=== PATIENT | female | born 1955 | race Caucasian/White ===

== ENCOUNTER → 2018-06-28 12:30 | Outpatient (CLI) | payer OTHER, SELFPAY ==
[2018-06-18 10:46] VITALS: BMI 37.8
--- NOTE | 2018-06-28 12:32 | STE_ITS ---
Reason For Study: CHEST PAIN Stress Results Protocol: Rommel Protocol Maximum Predicted HR: 159 bpm Target HR: 135 bpm % Maximum Predicted HR: 93 % DurationHeart Rate Stage (mm:ss) (bpm) BP Comment BASELINE 77 160/70 STAGE 1 3:00 125 182/82 STAGE 2 2:30 148 220/98INCREASED SOB RECOVERY 84 178/86 Stress Duration: 5:30 mm:ss Maximum Stress HR: 148 bpm Baseline Echocardiogram Findings The estimated ejection fraction is 65 %. Stress Echo Wall motion Data Resting WM Intermediate WM Stress WM Resting Wall Motion Wall Motion Stress No regional wall motion No regional wall motion abnormalities noted. abnormalities noted. EKG Data The baseline ECG displays normal sinus rhythm. The patient exercised according to the regular Rommel protocol for a total duration of 5:30. The maximum heart rate attained was 184 beats per minute. This was 115% of maximum predicted heart rate. The patient exercised into stage 2 of the Rommel protocol. The stress ECG displays diffuse abnormal ST segments. No clinical angina was noted. Interpretation Summary The estimated ejection fraction is 65 %. Normal, adequate, treadmill echocardiogram. Negative for ischemia by echocardiographic criteria. No anginal symptoms noted. Rare PVCs and ventricular cuplets noted. Hypertensive blood pressure response to exercise. Decreased exercise capacity for age. Final LVEF of 75%. No complications. Ordering Physician: J Carlos Barfield Referring Physician: J Carlos Barfield Performed By: Meeta Cook, RDLUPE, RVT
--- OUTSIDE RECORDS SUMMARY | 2018-09-30 02:53 | XMS RPT_ITS ---
:1955 Author Organization OHIP Support Name Relationship Address Phone UE Unavailable Unavailable Unavailable MAYNOR BEASLEY Unavailable [address] + [place] [address] UE Unavailable Unavailable Unavailable TAJ MAYNOR Unavailable [address] + [place] [address] UE Unavailable Unavailable Unavailable TAJ MAYNOR Unavailable [address] + [place] [address] MAYNOR BEASLEY Unavailable [phone] [place] [address] MAYNOR BEASLEY Unavailable [address] + [place] [address] UE Unavailable Unavailable Unavailable TAJ MAYNOR Unavailable [phone] [place] [address] TAJ MAYNOR Unavailable [address] + [place] [address] MAYNOR BEASLEY Unavailable [phone] [place] [address] UE Unavailable Unavailable Unavailable TAJ MAYNOR Unavailable [phone] [place] [address] UE Unavailable Unavailable Unavailable MAYNOR BEASLEY Unavailable [phone] [place] [address] UE Unavailable Unavailable Unavailable TAJ MAYNOR Unavailable [phone] [place] [address] TAJ MAYNOR Unavailable [address] + [place] [address] TAJ MAYNOR Unavailable [phone] [place] [address] Care Team Providers Name Role Phone MONIQUE WADSWORTH, AYAZ Humphrey JR. Attending Unavailable REBEKAH SHINE MD Primary Care Unavailable REBEKAH SHINE MD Attending Unavailable REBEKAH SHINE MD Primary Care Unavailable MANDIE CHAUDHRY, DR. LUIZ Smiley Attending Unavailable MANDIE CHAUDHRY, DR. LUIZ Smiley Primary Care Unavailable J Carlos Barfield Attending Unavailable Rebekah Shine Referring Unavailable J Carlos Barfield Attending Unavailable Fátima, Rebekah Referring Unavailable Fátima, Rebekah Primary Care Unavailable Meme Coker Attending Unavailable Denise Mattson Attending Unavailable J Carlos Barfield Attending Unavailable J Carlos Barfield Referring Unavailable Luiz Grider Primary Care Unavailable J Carlos Barfield Attending Unavailable J Carlos Barfield Referring Unavailable Annamaria Belcher Attending Unavailable Fátima, Rebekah Referring Unavailable PROBLEMS PROBLEMS DATE TYPE CONDITION / CODE ATTENDING STATUS SOURCE 07/21/2018 Unknown R07.9 - Chest pain, Lico J Carlos Active [facility] unspecified / [facility] R07.9(ICD-10) Hospital Repository 06/18/2018 Unknown R07.89 - Other chest Lico J Carlos Active [facility] pain / [facility] R07.89(ICD-10) Hospital Repository 06/18/2018 Unknown I10 - Essential J Carlos Barfield Active [facility] (primary) [facility] hypertension / Hospital I10(ICD-10) Repository 06/18/2018 Unknown E78.5 - J Carlos Barfield Active [place] Hyperlipidemia, [facility] unspecified / Hospital E78.5(ICD-10) Repository 12/21/2017 Admitting Type 2 diabetes FÁTIMA WADSWORTH, Active [facility] Diagnosis mellitus without REBEKAH H[facility] complications / Repository E11.9(ICD-10) 12/21/2017 Admitting Mixed hyperlipidemia FÁTIMA WADSWORTH Active [facility] Diagnosis / E78.2(ICD-10) [facility] H[facility] Repository 12/21/2017 Admitting Atrophy of thyroid FÁTIMA WADSWORTH, Active [facility] Diagnosis (acquired) / [facility]KAH H[facility] E03.4(ICD-10) Repository PROCEDURES PROCEDURES No Procedure Records FoundRESULTS RESULTS CARDIOLOGY VISIT Observed: 07/08/2018 Status: F Source: [facility] REPORT 5:51 PM [facility] HOSPITAL REPOSITORY [facility] [address] [place] [address]. [address] [place] [address] OFFICE VISIT Date of Service: 07/02/18 MR#: [id number] Acct: [id number] Name: MARIA INES BEASLEY Rep #: [id number] : 1955 Provider: Annamaria Belcher Age/Sex: 63/F Location: [facility] [place] Status: Signed [facility] Chief Complaint: Routine f/u Details: MARIA INES BEASLEY, is a 63 F who presents to the office today for for a blood pressure follow-up. Patient was in our office 2 weeks ago. Her blood pressure medications were adjusted. She does have a history of hypertension, hyperlipidemia and a strong family history of coronary artery disease. From a cardiac standpoint, patient is doing well. She does not have any chest discomfort/heaviness/tightness. Her exercise tolerance is stable for her age. She does not have any worsening symptoms of shortness of breath. She does not have any orthopnea. She denies PND. She does not have any symptoms of congestive heart failure. She does not have any palpitations that she is aware of. She does not have any lightheadedness or dizziness. She does not have any near-syncope or syncope. She does not have any lower extremity edema. She does not have any symptoms of claudication. 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 [Ecotrin] 81 mg PO DAILY@0800 04/18/14 [History Confirmed 07/02/18] Citalopram Hydrobromide [Celexa] 40 mg PO DAILY 04/18/14 [History Confirmed 07/02/18] Levothyroxine [Synthroid] 125 mcg PO DAILY 04/18/14 [History Confirmed 07/02/18] Venlafaxine XR [Effexor Xr] 37.5 mg PO DAILY 04/18/14 [History Confirmed 07/02/18] antiarthritic combination no.2 900 mg tablet mg PO .q day tab 11/16/17 [History Confirmed 07/02/18] valacyclovir 1 gram tablet 1,000 mg PO TID PRN 11/27/17 [History Confirmed 11/27/17] carvedilol 6.25 mg tablet 6.25 mg PO BID #180 tab 06/11/18 [Rx Confirmed 07/02/18] lisinopril 10 mg tablet 10 mg PO BID #60 tab 06/18/18 [Rx Confirmed 07/02/18] simvastatin 40 mg tablet 20 mg PO QPM tab 07/02/18 [History Confirmed 07/02/18] PFSH Medical History Pre-diabetes (Chronic) Hypothyroidism (Chronic) Hyperlipidemia (Chronic) Hypertension (Chronic) Obstructive sleep apnea (Chronic) Diabetes mellitus type II, controlled (Ruled-out) Surgical History History of appendectomy (Chronic) History of gynecologic surgery (Chronic) History of left heart catheterization (Chronic 04/19/14) Hx of cholecystectomy (Chronic) repair of anal fistula (Chronic) History of gynecologic surgery (Resolved) Family History Father , 70+ cancer in chest Myocardial infarction, Onset Age: 56 second AR age 73 CAD (coronary artery disease) Mother , Age 53, diabetes complications Diabetes Brother CAD (coronary artery disease) Myocardial infarction, Onset Age: 40 second AR age 50+ Social History Smoking Status: Never smoker ROS Const Const: Positive for other (Had heart fluttering when ran out of [email or web address]: back on it now.); negative for fatigue, weakness, body ache, fever(s), headache(s), chills, frequent falls, night sweats, daytime sleepiness, difficulty sleeping, excessive sweating, weight gain, weight loss, increased appetite, poor appetite or anorexia Eyes Eyes: Negative for blind spots, loss of peripheral vision, transient loss of vision, blurry vision, change in vision, double vision, floaters, tunnel vision or other ENT ENT: Negative for headache(s) or balance problems Cardio Chest Pain: Yes (Occasional pressure when walking dog, goes away. Cath 2013 normal) Frequency: more than once a day Character: tightness Onset: exercise Location: other (after exerting for a bit it does go away with continued activity) Duration: minutes (a few minutes) Exacerbation: exercise Relieving: other (continued activity) Palpitations: No (Not since going back on Coreg) Edema: None Muscle aches with walking: None Resp Respiratory: Negative for SOB with activity, SOB at rest, SOB orthopnea\SOB lying down, Cough, Coughing up blood/hemoptysis, chest congestion, pain on inspiration, snoring, stridor, wheezing, crackles, paroxysmal nocturnal dyspnea or other GI GI: Negative nausea, vomiting, heartburn, constipation, belching, bloating, cramping, vomiting blood/hematemesis, bright, red blood in stools, black,tarry stools, loose stools, Difficulty Swallowing or other : Negative for hematuria, frequent nighttime urination/ nocturia, erectile dysfunction or abnormal vaginal bleeding Musc Musc: Negative for balance problems, muscle aches/ myalgia, muscle weakness or joint pain Skin Skin: Negative redness, non-healing lesions, rash, unusual bruising, skin ulcer, wounds, jaundice or other Neuro Neuro: Negative for weakness, headache(s), frequent falls, blurry vision or double vision Harpreet Hematologic/Lymphatic: Negative for easy bleeding, easy bruising, enlarged lymph nodes or other Endo Endo: Negative for fatigue or excessive sweating Psych Psych: Negative for anxiety, depression, thoughts of harming anyone, thoughts of harming yourself, visual hallucinations, panic attacks or audible hallucinations Allergy Allergy/Immunology: Negative for rash Cardiology Exam Const Appearance: cooperative, healthy appearing and no acute distress Nutritional Appearance: well nourished Orientation: alert, oriented x3 and oriented to person Head Head: normal to inspection, atraumatic and normocephalic Nose: external nose normal Face and Sinus: face symmetric Mouth: oral mucosae normal Eyes General: appearance normal, both eyes and all related structures Eyelids: eyelids normal Conjunctivae: conjunctivae normal Pupils: PERRL and normal by confrontation EOM: EOM intact bilaterally Neck Neck: normal visual inspection and full ROM Carotids: normal carotid upstroke Chest Chest inspection: normal inspection of the chest Auscultation: Bilateral: Clear to Auscultation Cardio Palpation: normal PMI Rate: regular rate Rhythm: regular rhythm Heart sounds: S1 normal and S2 normal GI GI: normal to inspection, no hepatosplenomegaly and bowel sounds present Neuro General: alert, oriented x3, awake, CN's II-XI intact bilaterally and moves all extremities Skin Skin: no rashes or lesions noted Extremities Pulses: Normal: Right Femoral Pulse, Left Femoral Pulse, Right Dorsalis Pedis Pulse, Left Dorsalis Pedis Pulse, Right Posterior Tibial Pulse, Left Posterior Tibial Pulse, Right Radial Pulse, Left Radial Pulse Lower Extremity Edema: None: Bilateral Psych Psychological: normal affect Assessment AND Plan 1. Essential hypertension I10 Plan Blood pressure is better controlled. For now we will not make any adjustments. Patient was advised to continue to monitor blood pressure readings. If they are elevated she should give our office a call. 2. Pure hypercholesterolemia E78.00; E78.0 Plan Patient recently obtained by primary care doctor. Total cholesterol was 124, HDL 45, LDL 53. Patient will do new with current low-dose statin. Plan Detail Additional Comments Thank you for allowing us to participate in patient's plan of care, if you have any questions please do not hesitate to call. This note was generated using a voice recognition system and there may be incorrect words, spelling or punctuation errors that were not noted when reviewing the office note prior to saving. Follow Up 07/02/18 (keep as is- one can be cancelled) Coding Level of Care Code Off vis,est,level 3 Diagnoses Essential hypertension I10 Hypertension type: essential hypertension Pure hypercholesterolemia E78.00; E78.0 Hyperlipidemia type: pure hypercholesterolemia Coding Level of Care Code Off vis,est,level 3 Diagnoses Essential hypertension I10 Hypertension type: essential hypertension Pure hypercholesterolemia E78.00; E78.0 Hyperlipidemia type: pure hypercholesterolemia 07/08/18 1751 <Electronically signed by Annamaria ZUÑIGA> Date Annamaria ZUÑIGA Cosigner Signature: Date (if applicable) CC: Rebekah Shine MD STRESS TEST ECHO W/O Observed: 06/29/2018 Status: F Source: [facility] CONTRAST 5:17 PM [facility] [place] REPOSITORY [facility] Cardiovascular Services [address] [place] [address] Stress Test Echo w/o Contrast MR#: [id number] Acct: [id number] Name: MARIA INES BEASLEY Rep #: [id number] : 1955 63 From: J Carlos Barfield MD Primary Care: Luiz Grider DO Status: REG CLI Ordering Dr: J Carlos Barfield MD Sex: F C Reason For Study: CHEST PAIN Stress Results Protocol: Rommel Protocol Maximum Predicted HR: 159 bpm Target HR: 135 bpm % Maximum Predicted HR: 93 % DurationHeart Rate Stage (mm:ss) (bpm) BP Comment BASELINE 77 160/70 STAGE 1 3:00 125 182/82 STAGE 2 2:30 148 220/98INCREASED SOB RECOVERY 84 178/86 Stress Duration: 5:30 mm:ss Maximum Stress HR: 148 bpm Baseline Echocardiogram Findings The estimated ejection fraction is 65 %. Stress Echo Wall motion Data Resting WM Intermediate WM Stress WM Resting Wall Motion Wall Motion Stress No regional wall motion No regional wall motion abnormalities noted. abnormalities noted. EKG Data The baseline ECG displays normal sinus rhythm. The patient exercised according to the regular Rommel protocol for a total duration of 5:30. The maximum heart rate attained was 184 beats per minute. This was 115% of maximum predicted heart rate. The patient exercised into stage 2 of the Rommel protocol. The stress ECG displays diffuse abnormal ST segments. No clinical angina was noted. Interpretation Summary The estimated ejection fraction is 65 %. Normal, adequate, treadmill echocardiogram. Negative for ischemia by echocardiographic criteria. No anginal symptoms noted. Rare PVCs and ventricular cuplets noted. Hypertensive blood pressure response to exercise. Decreased exercise capacity for age. Final LVEF of 75%. No complications. Ordering Physician: J Carlos Barfield Referring Physician: J Carlos Barfield Performed By: Meeta Cook RDCS, RVT 06/29/18 1717 Date J Carlos Barfield MD CC: DO Luiz Grider; J Carlos Barfield MD Date Dictated: 06/28/18 1256 Date Transcribed: 06/29/18 1717 Print Line Feeder: Signed LIPID Collected: 06/23/2018 Status: F Source: [facility] 9:16 AM [facility] REPOSITORY TYPE CODE TESTS RESULT OUT OF REFERENCE UNITS RANGE LAB CHOL(LOINC 0-200 mg/dL ) Cholesterol 124 Result Comment: Cholesterol Reference Interval: Less than 200 Desirable 200-239 Borderline high risk 240 and above High risk LAB TRIG(LOINC) 0-150 mg/dL Triglycerides 128 Result Comment: Triglyceride Reference Interval: Less than 150 Normal 150-199 Borderline high risk 200-499 High risk 500 or higher Very high risk LAB HD(LOINC) 40-60 mg/dL HDL Cholesterol 45 LAB LDL(LOINC) 0-130 mg/dL LDL Cholesterol 53 Performed By: #### LIPID, CMP, GFR #### [place] [address] CMP Collected: 06/23/2018 Status: F Source: [facility] 9:16 AM [facility] REPOSITORY TYPE CODE TESTS RESULT OUT OF REFERENCE UNITS RANGE LAB GLU(LOINC) 80-115 mg/dL Glucose Level 104 LAB NA(LOINC) 136-145 mmol/L Sodium Level 137 LAB K(LOINC) 3.5-5.1 mmol/L Potassium Level 3.9 LAB CL(LOINC) 98-107 mmol/L Chloride 102 LAB CO2(LOINC) 23-31 mmol/L CO2 25 LAB EBAL(LOINC mEq/L ) Electrolyte Balance 10.0 LAB BUN(LOINC) 7-18 mg/dL BUN 11 LAB CRE(LOINC) 0.55-1.02 mg/dL Creatinine Lvl (s) 0.85 LAB BC(LOINC) 7-27 ratio BUN/Creatinine 13 Ratio LAB CA(LOINC) 8.4-10.2 mg/dL Calcium Lvl 8.4 LAB PROT(LOINC 6.4-8.2 G/dL ) Total Protein 7.2 LAB ALB(LOINC) 3.4-4.8 G/dL Albumin Level 4.1 LAB GLB(LOINC) G/dL Globulin 3.1 LAB AG(LOINC) 1.1-2.5 ratio A/G Ratio 1.3 LAB BILT(LOINC 0.2-1.0 mg/dL ) Bili Total 1.0 LAB AP(LOINC) 40-135 U/L Alk Phos 87 LAB AST(LOINC) 10-40 U/L AST/SGOT 21 LAB ALT(LOINC) 10-35 U/L ALT/SGPT 23 Performed By: #### LIPID, CMP, GFR #### [address] [address] .GFR Collected: 06/23/2018 Status: F Source: [facility] 9:16 AM [facility]POS[facility] TYPE CODE TESTS RESULT OUT OF REFERENCE UNITS RANGE LAB GFRAA(LOINC ml/min/1.73 ) sqm GFR 82 [place] Result Comment: GFR Population mean for , Non- Americans Ages 20-29 = 116 mL/min/1.73 sq.m. Ages 30-39 = 107 mL/min/1.73 sq.m. Ages 40-49 = 99 mL/min/1.73 sq.m. Ages 50-59 = 93 mL/min/1.73 sq.m. Ages 60-69 = 85 mL/min/1.73 sq.m. Ages 70+ = 75 mL/min/1.73 sq.m. Chronic Kidney Disease: Less than 60 mL/min/1.73 square meters End Stage Renal Disease: Less than 15 mL/min/1.73 square meters LAB GFRNO(LOINC) ml/min/1.73sqm GFR Non- 68 Result Comment: GFR Population mean for , Non- Americans Ages 20-29 = 116 mL/min/1.73 sq.m. Ages 30-39 = 107 mL/min/1.73 sq.m. Ages 40-49 = 99 mL/min/1.73 sq.m. Ages 50-59 = 93 mL/min/1.73 sq.m. Ages 60-69 = 85 mL/min/1.73 sq.m. Ages 70+ = 75 mL/min/1.73 sq.m. Chronic Kidney Disease: Less than 60 mL/min/1.73 square meters End Stage Renal Disease: Less than 15 mL/min/1.73 square meters Performed By: #### LIPID, CMP, GFR #### [address] [address] CARDIOLOGY VISIT Observed: 06/18/2018 Status: F Source: [facility] REPORT 10:58 AM [facility] REPOSITORY [facility] [address] [place] [address] OFFICE VISIT Date of Service: 06/18/18 MR#: [id number] Acct: [id number] Name: MARIA INES BEASLEY Rep #: [id number] : 1955 Provider: J Carlos Barfield MD Age/Sex: 63/F Location[place] [facility] [place] Status: Signed HPI HPI Chief Complaint: Routine f/u Details: Referring Physian: Dr Blakely Mrs. Beasley is a very pleasant 63-year-old diabetic, moderately obese female who presents to the office today for a cardiovascular follow up. She has a history of hypertension, hypercholesterolemia, chest pain, and a strong positive family history of coronary artery disease in her father and brother. Treadmill/MPI at [facility] in [place] was performed on 04/11/14, she went 7 minutes, did report chest pressure, and had evidence of mid anterior mild reversibility. Her EF was noted to be 71%. In order to better define her source of her chest pain, a catheterization was performed by me on 04/19/14 at [facility] which was angiographically normal with normal LV function. The patient was placed on Coreg and lisinopril, and her symptoms completely resolved. Since her last visit the patient is exercising without any difficulty, riding her bike, and now is walking more than she did before. She has walked to5K races without any difficulty whatsoever. She still has some warmup chest pain symptoms but appeared to get better as she exercises. It is unclear whether this is cardiac related or not. Patient was recently diagnosed with obstructive sleep apnea about 1 ago by her PCP, and is utilizing CPAP and feels much better. It has completely changed her life in fact. She has walked a 5K since that time and feels great. Patient reports that she ran out of her Coreg and developed some palpitations however these have resolved since resuming her Coreg. She does not take her blood pressure at home She is taking and tolerating her medicines well. In our office her blood pressure is 152/70 and pulse is 68 and regular. Her physical exam is as below. Her lipids as of 01/06/14 showing HDL of 63 and LDL of 70. Her lipids as of 06/23/16 shown LDL of 71 and HDL of 61. Intake Vital Signs06/18/18 Height 5 ft 3.5 in 06/18/18 Weight: 217 lb 06/18/18 Body Mass Index (BMI) 37.8 06/18/18 Blood Pressure 152/70 H Intake Visit Reasons: heart fluttering, out of coreg (being refilled) Allergies No Known Allergies Allergy (Verified 06/18/18 10:48) Medications Aspirin E.C. [Ecotrin] 81 mg PO DAILY@0800 04/18/14 [History Confirmed 06/18/18] Citalopram Hydrobromide [Celexa] 40 mg PO DAILY 04/18/14 [History Confirmed 06/18/18] Levothyroxine [Synthroid] 125 mcg PO DAILY 04/18/14 [History Confirmed 06/18/18] Venlafaxine XR [Effexor Xr] 37.5 mg PO DAILY 04/18/14 [History Confirmed 06/18/18] antiarthritic combination no.2 900 mg tablet mg PO .q day tab 11/16/17 [History Confirmed 06/18/18] simvastatin 40 mg tablet 40 mg PO QPM 11/16/17 [History Confirmed 06/18/18] valacyclovir 1 gram tablet 1,000 mg PO TID PRN 11/27/17 [History Confirmed 11/27/17] carvedilol 6.25 mg tablet 6.25 mg PO BID #180 tab 06/11/18 [Rx] lisinopril 10 mg tablet 10 mg PO BID #60 tab 06/18/18 [Rx Confirmed 06/18/18] [facility] Medical History Pre-diabetes (Chronic) Hypothyroidism (Chronic) Hyperlipidemia (Chronic) Hypertension (Chronic) Obstructive sleep apnea (Chronic) Diabetes mellitus type II, controlled (Ruled-out) Surgical History History of appendectomy (Chronic) History of gynecologic surgery (Chronic) History of left heart catheterization (Chronic 04/19/14) Hx of cholecystectomy (Chronic) repair of anal fistula (Chronic) History of gynecologic surgery (Resolved) Family History Father , 70+ cancer in chest Myocardial infarction, Onset Age: 56 second AR age 73 CAD (coronary artery disease) Mother , Age 53, diabetes complications Diabetes Brother CAD (coronary artery disease) Myocardial infarction, Onset Age: 40 second AR age 50+ Social History Smoking Status: Never smoker ROS Const Const: Positive for other (Had heart fluttering when ran out of [email or web address]: back on it now.); negative for fatigue, weakness, body ache, fever(s), headache(s), chills, frequent falls, night sweats, daytime sleepiness, difficulty sleeping, excessive sweating, weight gain, weight loss, increased appetite, poor appetite or anorexia Eyes Eyes: Negative for blind spots, loss of peripheral vision, transient loss of vision, blurry vision, change in vision, double vision, floaters, tunnel vision or other ENT ENT: Negative for dizziness, hearing loss, tinnitus, Nosebleed/epistaxis, balance problems, post nasal drip, lip swelling, tongue swelling, bleeding gums, hoarseness, neck pain, dry mouth, other or headache(s) Cardio Chest Pain: Yes (Occasional pressure when walking dog, goes away. Cath 2013 normal) Frequency: more than once a day Character: tightness Onset: exercise Location: other (after exerting for a bit it does go away with continued activity) Duration: minutes (a few minutes) Exacerbation: exercise Relieving: other (continued activity) Palpitations: No (Not since going back on Coreg) Edema: None Muscle aches with walking: None Resp Respiratory: Negative for SOB with activity, SOB at rest, SOB orthopnea\SOB lying down, Cough, Coughing up blood/hemoptysis, chest congestion, pain on inspiration, snoring, stridor, wheezing, crackles, paroxysmal nocturnal dyspnea or other GI GI: Negative nausea, vomiting, heartburn, constipation, belching, bloating, cramping, vomiting blood/hematemesis, bright, red blood in stools, black,tarry stools, loose stools, Difficulty Swallowing or other : Negative for hematuria, frequent nighttime urination/ nocturia, erectile dysfunction or abnormal vaginal bleeding Musc Musc: Negative for balance problems, muscle aches/ myalgia, muscle weakness or joint pain Skin Skin: Negative redness, non-healing lesions, rash, unusual bruising, skin ulcer, wounds, jaundice or other Neuro Neuro: Negative for blurry vision, double vision, dizziness, lightheadedness, near syncope, syncope, orthostatic symptoms, confusion, memory loss, restless legs, vertigo, seizures, lack of coordination, other, weakness, headache(s) or frequent falls Harpreet Hematologic/Lymphatic: Negative for easy bleeding, easy bruising, enlarged lymph nodes or other Endo Endo: Negative for cold intolerance, heat intolerance, flushing, increased thirst/drinking, increased hunger, hair loss, hair growth, other, fatigue or excessive sweating Psych Psych: Negative for anxiety, depression, thoughts of harming anyone, thoughts of harming yourself, visual hallucinations, panic attacks or audible hallucinations Allergy Allergy/Immunology: Negative for lip swelling, Negative for tongue swelling, Negative for rash, Negative for throat swelling, Negative for hives Cardiology Exam Const Appearance: cooperative, healthy appearing and no acute distress Nutritional Appearance: well nourished Orientation: alert, oriented x3 and oriented to person Head Head: normal to inspection, atraumatic and normocephalic Nose: external nose normal Face and Sinus: face symmetric Mouth: oral mucosae normal Eyes General: appearance normal, both eyes and all related structures Eyelids: eyelids normal Conjunctivae: conjunctivae normal Pupils: PERRL and normal by confrontation EOM: EOM intact bilaterally Neck Neck: normal visual inspection and full ROM Carotids: normal carotid upstroke Chest Chest inspection: normal inspection of the chest Auscultation: Bilateral: Clear to Auscultation Cardio Palpation: normal PMI Rate: regular rate Rhythm: regular rhythm Heart sounds: S1 normal and S2 normal GI GI: normal to inspection, no hepatosplenomegaly and bowel sounds present Neuro General: alert, oriented x3, awake, CN's II-XI intact bilaterally and moves all extremities Skin Skin: no rashes or lesions noted Extremities Pulses: Normal: Right Femoral Pulse, Left Femoral Pulse, Right Dorsalis Pedis Pulse, Left Dorsalis Pedis Pulse, Right Posterior Tibial Pulse, Left Posterior Tibial Pulse, Right Radial Pulse, Left Radial Pulse Lower Extremity Edema: None: Bilateral Psych Psychological: normal affect Assessment AND Plan 1. Chest pressure R07.89 Plan 1. Chest pressure: Patient continues to have what appears to be ramp-up chest pressure which may be pulmonary related as she walks her dogs. Although her catheterization in 2013 showed no significant coronary disease, I am concerned that she may have hypertension induced chest pain. To better evaluate this I recommend that she undergo a treadmill echocardiogram and that we increase her lisinopril to 10 mg p.o. twice daily. She will return in 2 weeks time for a blood pressure check. If her stress test is grossly abnormal she may require repeat catheterization. Orders Orders: 2. Hyperlipidemia E78.5 Plan 2. Hyperlipidemia: Her lipids are managed by her PCP. Continue Zocor at current dosage for now. She has an upcoming visit with her PCP for lipid evaluation. We await those results 3. Hypertension I10 Plan 3. Hypertension: Patient's fluttering has completely resolved with resumption of her Coreg, and recommend increasing her lisinopril. Repeat blood pressure check in 2 weeks time. 4. Return office in 6 months. This note was generated using a voice recognition system and there may be incorrect words, spelling or punctuation that were not noted when reviewing the office note prior to saving. Orders Orders: Plan Detail Other Medications New: Follow Up +6M ([place]) +2 weeks (BP CHECK) Coding Level of Care Code Off vis,est,level 3 Diagnoses Chest pressure R07.89 Hyperlipidemia E78.5 Hypertension I10 Coding Level of Care Code Off vis,est,level 3 Diagnoses Chest pressure R07.89 Hyperlipidemia E78.5 Hypertension I10 06/18/18 1058 <Electronically signed by J Carlos Barfield MD> Date J Carlos Barfield MD Cosign Signature: Date (if applicable) CC: Rebekah Shine MD LIPID Collected: 12/21/2017 Status: F Source: [facility] 8:01 AM [facility]ATION REPOSITORY TYPE CODE TESTS RESULT OUT OF REFERENCE UNITS RANGE LAB CHOL(LOINC 131-200 mg/dL ) Low Cholesterol 127 Result Comment: Cholesterol Reference Interval: Less than 200 Desirable 200-239 Borderline high risk 240 and above High risk LAB TRIG(LOINC) 40-150 mg/dL Triglycerides 114 Result Comment: Triglyceride Reference Interval: Less than 150 Normal 150-199 Borderline high risk 200-499 High risk 500 or higher Very high risk LAB HD(LOINC) 35-90 mg/dL HDL Cholesterol 56 Result Comment: HDL Reference Interval: Less than 40 Low - high risk 60 or above Optimal/lowers risk LAB LDL(LOINC) 0-130 mg/dL LDL Cholesterol 48 Result Comment: LDL is a calculated result and requires a 12-hr fast. LDL Reference Interval: Less than 100 Optimal 100-129 Near or above optimal 130-159 Borderline high risk 160-189 High risk 190 and above Very high risk Performed By: #### LIPID, CMP, GFR, TSH #### [facility] [place] [address], [place] [address] CMP Collected: 12/21/2017 Status: F Source: [facility] 8:01 AM [facility]OUNDATION REPOSITORY TYPE CODE TESTS RESULT OUT OF REFERENCE UNITS RANGE LAB GLU(LOINC) 80-115 mg/dL Glucose Level 108 LAB NA(LOINC) 136-146 mEq/L Sodium Level 136 LAB K(LOINC) 3.5-5.1 mEq/L Potassium Level 4.0 LAB CL(LOINC) 98-107 mEq/L Chloride 101 LAB CO2(LOINC) 23-31 mEq/L CO2 27 LAB EBAL(LOINC mEq/L ) Electrolyte Balance 8.0 LAB BUN(LOINC) 7.0-18.0 mg/dL BUN 13.2 LAB CRE(LOINC) 0.6-1.2 mg/dL Creatinine Lvl (s) 0.9 LAB BC(LOINC) 7-27 ratio BUN/Creatinine 15 Ratio LAB CA(LOINC) 8.4-10.2 mg/dL Calcium Lvl 9.4 LAB PROT(LOINC 6.0-8.3 G/dL ) Total Protein 7.0 LAB ALB(LOINC) 3.4-4.8 G/dL Albumin Level 4.4 LAB GLB(LOINC) G/dL Globulin 2.6 LAB AG(LOINC) 1.1-2.5 ratio A/G Ratio 1.7 LAB BILT(LOINC 0.2-1.0 mg/dL ) Bili Total 0.6 LAB AP(LOINC) 40-135 IU/L Alk Phos 72 LAB AST(LOINC) 10-40 IU/L AST/SGOT 17 LAB ALT(LOINC) 10-35 IU/L ALT/SGPT 13 Performed By: #### LIPID, CMP, GFR, TSH #### [facility] [place] [address] [place], [place] [address] .GFR Collected: 12/21/2017 Status: F Source: [facility] 8:01 AM [facility] REPOSITORY TYPE CODE TESTS RESULT OUT OF REFERENCE UNITS RANGE LAB GFRAA(LOINC ml/min/1.73 ) sqm GFR 81 Nauruan Result Comment: GFR Population mean for , Non- Americans Ages 20-29 = 116 mL/min/1.73 sq.m. Ages 30-39 = 107 mL/min/1.73 sq.m. Ages 40-49 = 99 mL/min/1.73 sq.m. Ages 50-59 = 93 mL/min/1.73 sq.m. Ages 60-69 = 85 mL/min/1.73 sq.m. Ages 70+ = 75 mL/min/1.73 sq.m. Chronic Kidney Disease: Less than 60 mL/min/1.73 square meters End Stage Renal Disease: Less than 15 mL/min/1.73 square meters LAB GFRNO(LOINC) ml/min/1.73sqm GFR Non- >60 Result Comment: GFR Population mean for , Non- Americans Ages 20-29 = 116 mL/min/1.73 sq.m. Ages 30-39 = 107 mL/min/1.73 sq.m. Ages 40-49 = 99 mL/min/1.73 sq.m. Ages 50-59 = 93 mL/min/1.73 sq.m. Ages 60-69 = 85 mL/min/1.73 sq.m. Ages 70+ = 75 mL/min/1.73 sq.m. Chronic Kidney Disease: Less than 60 mL/min/1.73 square meters End Stage Renal Disease: Less than 15 mL/min/1.73 square meters Performed By: #### LIPID, CMP, GFR, TSH #### [facility] [place] [address] [place], [place] [address] TSH Collected: 12/21/2017 Status: F Source: [facility] 8:01 AM [facility]OUNDATION REPOSITORY TYPE CODE TESTS RESULT OUT OF RANGE REFERENCE UNITS LAB TSH(LOINC) 0.27-4.20 mcIU/mL TSH 1.39 Performed By: #### LIPID, CMP, GFR, TSH #### [facility] [place] [address], [place] [address] CARDIOLOGY VISIT Observed: 11/27/2017 Status: F Source: [place] REPORT 10:47 AM [facility] REPOSITORY [facility] [address] [place] [address] OFFICE VISIT Date of Service: 11/27/17 MR#: [id number] Acct: [id number] Name: MARIA INES BEASLEY Rep #: [id number] : 1955 Provider: J Carlos Barfield MD Age/Sex: 62/F Location: [facility] [place] Status: Signed HPI HPI Chief Complaint: Routine f/u Details: Referring Physian: Dr Blakely Mrs. Beasley is a very pleasant 62-year-old diabetic moderately obese female who presents to the office today for a cardiovascular follow up. She has a history of hypertension, hypercholesterolemia, chest pain, and a strong positive family history of coronary artery disease in her father and brother. Treadmill/MPI at [facility] in [place] was performed on 04/11/14, she went 7 minutes, did report chest pressure, and had evidence of mid anterior mild reversibility. Her EF was noted to be 71%. In order to better define her source of her chest pain, a catheterization was performed by me on 04/19/14 at [facility] which was angiographically normal with normal LV function. The patient was placed on Coreg and lisinopril, and her symptoms completely resolved. From a cardiac standpoint she is doing well. The patient continues to get occasional chest discomfort that occurs in the first couple of minutes of when she goes on her walks. This is described as 3 out of 10 midsternal dull pain, this is not new for her and is not increased in frequency or intensity. Their exercise tolerance is stable. Pt denies symptoms of CHF, palpitations, lightheadedness, dizziness, near syncopal or syncopal episodes. Pt denies edema or claudication issues. Patient states that she no longer takes her metformin, was told by her pcp that A1C is normal. BPs at home have remained stable and she reports nothing over 150 systolic. Since her last visit the patient is exercising without any difficulty, riding her bike, and And now is walking more than she did before. She has walked to5K races without any difficulty whatsoever. She still has some warmup chest pain symptoms but appeared to get better as she exercises. It is unclear whether this is cardiac related or not. Patient was recently diagnosed with obstructive sleep apnea about 2 months ago by her PCP, and is utilizing CPAP and feels much better. It is completely changed her life in fact. She has walked a 5K since that time and feels great. She is taking and tolerating her medicines well. In our office her blood pressure is 124/72 and pulse is 64 and regular. Her physical exam is as below. Her lipids as of 01/06/14 showing HDL of 63 and LDL of 70. Her lipids as of 06/23/16 shown LDL of 71 and HDL of 61. Intake Vital Signs11/27/17 Height 5 ft 3 in Intake Visit Reasons: 6 M FU Allergies No Known Allergies Allergy (Verified 11/27/17 10:26) Medications Aspirin E.C. [Ecotrin] 81 mg PO DAILY@0800 04/18/14 [History Confirmed 11/27/17] Citalopram Hydrobromide [Celexa] 40 mg PO DAILY 04/18/14 [History Confirmed 11/27/17] Levothyroxine [Synthroid] 125 mcg PO DAILY 04/18/14 [History Confirmed 11/27/17] Venlafaxine XR [Effexor Xr] 37.5 mg PO DAILY 04/18/14 [History Confirmed 11/27/17] antiarthritic combination no.2 900 mg tablet mg PO .q day tab 11/16/17 [History Confirmed 11/27/17] carvedilol 6.25 mg tablet 6.25 mg PO BID 11/16/17 [History Confirmed 11/27/17] lisinopril 5 mg tablet 5 mg PO BID tab 11/16/17 [History Confirmed 11/27/17] simvastatin 40 mg tablet 40 mg PO QPM 11/16/17 [History Confirmed 11/27/17] chromium 200 mcg-brindal campo 500 mg tablet 1 tab PO ONCE 11/27/17 [History Confirmed 11/27/17] valacyclovir 1 gram tablet 1,000 mg PO TID PRN 11/27/17 [History Confirmed 11/27/17] PFSH Family History Father , 70+ cancer in chest Myocardial infarction, Onset Age: 56 second AR age 73 CAD (coronary artery disease) Mother , Age 53, diabetes complications Diabetes Brother CAD (coronary artery disease) Myocardial infarction, Onset Age: 40 second AR age 50+ Social History Smoking Status: Never smoker ROS Const Const: Negative for fatigue, weakness, difficulty sleeping, frequent falls, headache(s) or excessive sweating Eyes Eyes: Negative for loss of peripheral vision, transient loss of vision, blurry vision or double vision ENT ENT: Negative for headache(s), dizziness, Nosebleed/epistaxis or balance problems Cardio Chest Pain: No Edema: None Muscle aches with walking: None Resp Respiratory: Negative for SOB with activity, SOB at rest, SOB orthopnea\SOB lying down or paroxysmal nocturnal dyspnea Additional Details: CPAP GI GI: Negative nausea or heartburn : Negative for hematuria Musc Musc: Negative for muscle aches/ myalgia, muscle weakness, joint pain or balance problems Skin Skin: Negative non-healing lesions, unusual bruising or rash Neuro Neuro: Negative for weakness, frequent falls, blurry vision, headache(s), dizziness, lightheadedness, orthostatic symptoms or double vision Harpreet Hematologic/Lymphatic: Negative for easy bruising Endo Endo: Negative for fatigue, excessive sweating or increased thirst/drinking Psych Psych: Negative for anxiety or depression Allergy Allergy/Immunology: Negative for hives, Negative for rash Cardiology Exam Const Appearance: cooperative, healthy appearing and no acute distress Nutritional Appearance: well nourished Orientation: alert, oriented x3 and oriented to person Head Head: normal to inspection, atraumatic and normocephalic Nose: external nose normal Face and Sinus: face symmetric Mouth: oral mucosae normal Eyes General: appearance normal, both eyes and all related structures Eyelids: eyelids normal Conjunctivae: conjunctivae normal Pupils: PERRL and normal by confrontation EOM: EOM intact bilaterally Neck Neck: normal visual inspection and full ROM Carotids: normal carotid upstroke Chest Chest inspection: normal inspection of the chest Auscultation: Bilateral: Clear to Auscultation Cardio Palpation: normal PMI Rate: regular rate Rhythm: regular rhythm Heart sounds: S1 normal and S2 normal GI GI: normal to inspection, no hepatosplenomegaly and bowel sounds present Neuro General: alert, oriented x3, awake, CN's II-XI intact bilaterally and moves all extremities Skin Skin: no rashes or lesions noted Extremities Pulses: Normal: Right Femoral Pulse, Left Femoral Pulse, Right Dorsalis Pedis Pulse, Left Dorsalis Pedis Pulse, Right Posterior Tibial Pulse, Left Posterior Tibial Pulse, Right Radial Pulse, Left Radial Pulse Lower Extremity Edema: None: Bilateral Psych Psychological: normal affect Assessment AND Plan 1. Hypertension I10 Plan 1. Hypertension: Patient's blood pressure is markedly improved and is fact normalized since use of antihypertensive medications as well as CPAP therapy. Nonetheless I would recommend continuing her baby aspirin, Coreg, lisinopril. 2. Hyperlipidemia E78.5 Plan 2. Hyperlipidemia: Her LDL and HDL cholesterol were at goal on her last check. No repeat lipids are in the chart. This appears to be managed by her PCP. Continue Zocor. 3. Return office in 1 year This note was generated using a voice recognition system and there may be incorrect words, spelling or punctuation that were not noted when reviewing the office note prior to saving. Plan Detail Follow Up +1 Year ([place]) Coding Level of Care Code Off vis,est,level 3 Diagnoses Hypertension I10 Hyperlipidemia E78.5 Coding Level of Care Code Off vis,est,level 3 Diagnoses Hypertension I10 Hyperlipidemia E78.5 11/27/17 1047 <Electronically signed by J Carlos Barfield MD> Date J Carlos Barfield MD Cosigner Signature: Date (if applicable) CC: Rebekah VAUGHAN Collected: 09/10/2017 Status: F Source: [facility] 10:37 AM [facility]OUNDATION REPOSITORY TYPE CODE TESTS RESULT OUT OF RANGE REFERENCE UNITS LAB FE(LOINC) 65-170 mcg/dL Low Iron 62 Performed By: #### FE, IBC #### [address] [address] #### FERR #### [place] [address] IBC Collected: 09/10/2017 Status: F Source: [facility] 10:37 AM [facility] REPOSITORY TYPE CODE TESTS RESULT OUT OF RANGE REFERENCE UNITS LAB IBC(LOINC) 250-450 mcg/dL TIBC 314 Performed By: #### FE, IBC #### [address] [address] #### FERR #### [place] [address] FERR Collected: 09/10/2017 Status: F Source: [facility] 10:37 AM [facility] REPOSITORY TYPE CODE TESTS RESULT OUT OF REFERENCE UNITS RANGE LAB FERR(LOINC) 8-252 ng/mL Ferritin 221 Performed By: #### FE, IBC #### [place] [address] #### FERR #### [place] [address] ALLERGIES ALLERGIES DATE TYPE / CODE NAME / CODE REACTION SEVERITY SOURCE 07/02/[address] [facility] Allergy/4160 Allergies/F00 [facility] [address](SNOMED 9803269(RXNOR Repository CT) M) ENCOUNTERS ENCOUNTERS ADMIT/DISCHARGE ACCOUNT NUMBER ADMITTING ENCOUNTER LOCATION SOURCE CLASS 07/02/2018/07/02/20 [id number] Ambulatory BMSBuilding: [place] 18 BMS.[facility] Repository 06/28/2018 [id number] Ambulatory [facility] ding:[facility] Repository 06/28/2018 [id number] Ambulatory BMSBuilding: [facility] Repository 06/23/2018/06/27/20 [id number] Ambulatory BBuilding:DR Rivas [address] [place] [address] Repository 06/18/2018/06/18/20 [id number] Ambulatory BMSBuilding: [place] 18 BMS.[facility] Repository 12/21/2017/12/26/19 [id number] Ambulatory EVELYN Riavs [address] [place] [address] ding:[facility] Repository 11/27/2017/11/28/19 [id number] Ambulatory BMSBuilding: [place] 18 BMS.[facility] Repository 11/27/2017 [id number] Ambulatory BMSBuilding: [place] BMS.[facility] Repository 11/16/2017 [id number] Ambulatory BMSBuilding: [place] BMS.[facility] Repository 09/10/2017/09/11/19 [id number] Ambulatory [facility] 18 [facility] ding:AB [facility] Repository PAYERS PAYERS ENCOUNTER GUARANTOR PAYER SUBSCRIBER SOURCE 07/02/2018 MAYNOR R Primary MAYNOR R [place] [id number] Insurance: YODERDOB: [facility] Number: [id number] [place], [place] [id number] Repository [address]Sky: [phone]) Date:2018-06-18c/o [phone] () [employer]C[address] [place] [id number]: 07/02/2018 Secondary NOT GIVENUNK [place] Insurance:SELF PAY [facility] Number: Effective Repository Date:2018-07-02 06/28/2018 MAYNOR R Primary MAYNOR R [place] [id number] Insurance: YODERDOB: [facility] Number: [id number] [place], [place] [id number] Repository [address]Qan: [phone]) Date:2018-06-18c/o [phone] (HP) [id number] [place] [phone]: 06/28/2018 Secondary NOT GIVENUNK [place] Insurance:SELF PAY [facility] Number: Effective Repository Date:2018-06-18 06/28/2018 MAYNOR R Primary MAYNOR R [place] [id number] Insurance: YODERDOB: [facility] Number: [id number] [place], [place] [id number] Repository [address]Ond: ([phone]) Date:2018-06-18c/o [phone] () [employer] [place] [phone]: 06/28/2018 Secondary NOT GIVENUNK [place] Insurance:SELF PAY [facility] Number: Effective Repository Date:2018-06-28 06/23/2018 MARIA INES L Primary MARIA INES Rivas [facility] YODERDOB: Insurance: YODERDOB: [facility] INSCOPolicy Number: [id number] Repository [facility] [id number] 0 [place], [place] Date:2018-06-23 [place] [address]~[id number]: ([phone]) @[facility]: Name:[facility] [phone] [place] [address], ()Tel: [phone]) () [place] [phone]: [phone] () 06/18/2018 MAYNOR R Primary MAYNOR R [place] [id number] Insurance: YODERDOB: [facility] Number: [id number] [place], [place] [id number] Repository [address]Buy: [phone]) Date:2018-06-11c/o [phone] () [employer] [place] [phone]: 06/18/2018 Secondary NOT GIVENUNK [place] Insurance:SELF PAY [facility] Number: Effective Repository Date:2018-06-18 12/21/2017 MARIA INES L Primary MARIA INES Rivas [facility] YODERDOB: Insurance: YODERDOB: [facility] CHAMPUSPolicy Number: [id number] Repository [facility] [id number] 0 [facility] [place], [place] Date:2017-12-21 [place] [id number]: ([phone]) @EMEKAVTBETTINAYola: Name:[facility] [phone] [place] [address], ()Tel: [phone]) (EM) [place] [phone]: [phone] (WP) 11/27/2017 MAYNOR Primary Maynor Rajput [id number] Insurance: [facility]oderDOB[facility] Number: [id number] [place], [place] [id number] Repository [address]Tif: [phone]) Date:2017-06-23c/o [phone] () [employer] [place] [phone]: 11/27/2017 Secondary NOT GIVENUNK [place] Insurance:SELF PAY [facility] Number: Effective Repository Date:2017-06-23 11/27/2017 MAYNOR Primary Maynor Suoster [id number] Insurance: [facility] Number: [id number] [place], [place] [id number] Repository [address]Wsk: ([phone]) Date:2017-11-27c/o [phone] () [facility] [place] [phone]: 11/27/2017 Secondary NOT GIVENUNK [place] Insurance:SELF PAY [facility] Number: Effective Repository Date:2017-11-27 11/16/2017 MAYNOR Primary Maynor Suoster [id number] Insurance: YoderDOB: [facility] Number: [id number] [place], [place] [id number] Repository [address]Xro: ([phone]) Date:2017-11-16c/o [phone] () [facility] [place] [phone]: 11/16/2017 Secondary NOT GIVENUNK [place] Insurance:SELF PAY [facility] Number: Effective Repository Date:2017-11-16 09/10/2017 MARIA INES Brady Primary MARIA INES Brady [facility]: SUSHMADERDOB: [facility] [id number] [facility] Number: [id number] Repository [facility] [id number] 0 [place] Date:2017-09-10 - [place] [id number]: ([phone]) @[facility]: Name:[facility] Alyse [phone] [address] ()Tel: [phone]) (YV) [place] [phone]: [phone] ()
== END ==
PROVIDERS: Family Provider Family Medicine; PCP Family Medicine; Referring Provider Internal Medicine Cardiovascular Disease; Visit Provider Internal Medicine Cardiovascular Disease
DX: R07.89 Other chest pain (principal); I10 Essential (primary) hypertension
CPT/HCPCS: 93017; 93350

== ENCOUNTER 2018-12-07 08:50 | Day surgery (SDC) | payer OTHER, SELFPAY ==
[2018-11-25 14:46] VITALS: BMI 38.7
--- NOTE | 2018-11-28 11:12 | HP_ITS ---
Intake Vital Signs 11/25/18 Body Mass Index (BMI) 38.7 11/25/18 Height 5 ft 3 in 11/25/18 Weight: 188 lb 11/25/18 Body Mass Index (BMI) 33.3 11/25/18 Blood Pressure 118/65 11/25/18 Blood Pressure Location Rt brachial 11/25/18 Blood Pressure Position Sitting 11/25/18 Respiratory Rate 18 Intake Visit Reasons: Hernia Chief Complaint: Routine f/u Head Host/Hostess Required: No Is patient in pain?: No Allergies No Known Allergies Allergy (Verified 11/25/18 14:44) Medications Aspirin E.C. [Ecotrin] 81 mg PO DAILY@0800 04/18/14 [History Confirmed 11/25/18] Citalopram Hydrobromide [Celexa] 40 mg PO DAILY 04/18/14 [History Confirmed 11/25/18] Levothyroxine [Synthroid] 125 mcg PO DAILY 04/18/14 [History Confirmed 11/25/18] Venlafaxine XR [Effexor Xr] 37.5 mg PO DAILY 04/18/14 [History Confirmed 11/25/18] antiarthritic combination no.2 900 mg tablet mg PO .q day tab 11/16/17 [History Confirmed 11/25/18] carvedilol 6.25 mg tablet 6.25 mg PO BID #180 tab 07/29/18 [Rx Confirmed 11/25/18] simvastatin 20 mg tablet 20 mg PO QHS #90 tab 07/29/18 [Rx Confirmed 11/25/18] lisinopril 10 mg tablet 5 mg PO DAILY tab 11/25/18 [History] [facility] Medical History Pre-diabetes (Chronic) Hypothyroidism (Chronic) Hyperlipidemia (Chronic) Hypertension (Chronic) Obstructive sleep apnea (Chronic) Diabetes mellitus type II, controlled (Ruled-out) Surgical History History of appendectomy (Chronic) History of gynecologic surgery (Chronic) History of left heart catheterization (Chronic 04/19/14) Hx of cholecystectomy (Chronic) repair of anal fistula (Chronic) History of gynecologic surgery (Resolved) Family History Father , 70+ cancer in chest Myocardial infarction, Onset Age: 56 second [place] age 73 CAD (coronary artery disease) Mother , Age 53, diabetes complications Diabetes Brother CAD (coronary artery disease) Myocardial infarction, Onset Age: 40 second [place] age 50+ Social History Smoking Status: Never smoker alcohol intake: never HPI HPI HPI: MARIA INES VANG, is a 63 F who presents to the office today for HPI HPI Surgical H&P: Yes HPI: MARIA INES VANG, is a 63 F who presents to the office today for evaluation of a hernia. Patient had a previous gallbladder surgery and has had a lump at her upper incisional site that is gradually gotten larger over the last several months. It does not appreciably hurt but it does bulge out significantly when she coughs. She has some minor aching in the area. She has had no change in her bowel or bladder habits ROS General General: Yes weight change and fatigue; no appetite, colon cancer, breast cancer or weakness HEENT HEENT: Yes eye injury and eye surgery; no difficulty swallowing, swollen glands or hoarseness Endo Endocrine: Yes thyroid disease; no diabetes mellitus, thyroid cancer, Hair loss, heat intolerance or cold intolerance Skin Skin: No rash or changing moles Breast Breast: No left breast lump, right breast lump, nipple discharge, breast pain, abnormal mammogram, abnormal US or breast enlargement Musc Musculoskeletal: No back problems, arthritis, rheumatoid arthritis, gout or joint pain Cardio Cardiovascular: Yes high blood pressure; no murmur, pacemaker, heart disease, atrial fibrillation, heart attack, heart stent, palpitations, shortness of breat with exertion or chest pain Psych Psychiatric: Yes depression; no anxiety or hearing voices Resp Respiratory: No shortness of breath, Yes sleep apnea, No cough, No COPD, No asthma, No emphysema, No wheezing Gastro Gastrointestinal: No abdominal pain, No nausea or vomiting, No diarrhea, Yes constipation, No blood in stool, No acid reflux, No hemorrhoids, No ulcers, No gallbladder problem, No black,tarry stools Harpreet Hematologic: No blood thinners, No blood disorders, No bleeding, No anemia, No blood clots Neuro Neurologic: No system reviewed and no additional complaints, except as docu, No as per HPI, No abnormal walking, No abnormal hearing, No abnormal movements, No abnormal speech, No behavioral changes, No burning sensations, No confusion, No seizure-like activity, No unsteadiness, No dizziness, No localized weakness, No frequent falls, No headache(s), No lack of coordination, No loss of vision, No memory loss, No numbness, No other visual disturbances, No radiating pain, No restless legs, No sensory deficit, No fainting, No tingling, No tremor(s), No weakness, No other Exam Const General: no acute distress, well developed, well hydrated Orientation: oriented to person, oriented to place, oriented to time [facility] Head: normocephalic, atraumatic Ears: external ears normal Mouth: moist mucous membranes Eyes Sclera: sclerae normal Pupils: normal by confrontation Neck Neck: no lymphadenopathy noted Neck mass: No Thyroid: thyroid normal, symmetrical Chest Chest palpation & inspection: normal inspection of the chest Breast Palpation: No nipple discharge Resp Effort & Inspection: normal respiratory effort Auscultation: clear to auscultation bilaterally Percussion: percussion normal Cardio Rate: regular rate Rhythm: regular rhythm Heart Sounds: no murmurs GI Palpation: soft, no hepatosplenomegaly, no masses, tender Rectal Exam: other Other: Hernia is located in the epigastric area with close proximity to her previous gallbladder incision from a large trocar site. It is easily reducible. No other hernias are identified. Rectal exam deferred. Extrem General: normal to inspection, no clubbing, cyanosis or edema Assessment & Plan Problems 1. Incisional hernia, without obstruction or gangrene K43.2; K43.91 Plan My plan is to perform an incisional hernia repair in the epigastric. The planned surgical procedure was discussed extensively with the patient. The risks, benefits, anticipated outcomes and possible complication were mentioned. The patient understands that all hernia repair surgery has a chance of recurrence and/or chronic post-operative pain. My staff has also explained the procedure in understandable terms and the patient was given the option to take printed material concerning the planned procedure. The patient had the opportunity to ask questions concerning the planned procedure. The patient freely consents to the planned procedure. Coding Level of Care Code Off vis,new,level 3 Diagnoses Incisional hernia, without obstruction or gangrene K43.2; K43.91 ??Obstruction and gangrene presence: without obstruction or gangrene 11/28/18 1113 <Electronically signed by J Carlos Candelario MD> Date J Carlos Candelario MD I have re-examined the patient. There are no clinical changes since date of exam.
--- NOTE | 2018-12-07 09:10 | EKG12_ITS ---
Test Reason : PRE OP Blood Pressure : / mmHG Vent. Rate : 061 BPM Atrial Rate : 061 BPM P-R Int : 166 ms QRS Dur : 084 ms QT Int : 450 ms P-R-T Axes : 071 036 037 degrees QTc Int : 453 ms Normal sinus rhythm Normal ECG When compared with ECG of 06-JUN-2009 09:29, No significant change was found Confirmed by SU WADSWORTH, ADAMS ([id number]), publication editor NATHALIE MCKENNA ([id number]) on 12/13/2018 2:53:55 PM Referred By: J Carlos Candelario Confirmed By:ADAMS BLUE MD
[2018-12-07 09:33] VITALS: BP 156/71; PULSE 62; RESP 16; TEMP 36.8; O2SAT 97; BMI 33.6
[2018-12-07 09:56] LABS: Bedside Glucose 96 mg/dL (70-110)
--- NOTE | 2018-12-07 10:57 | OP.PCM_ITS ---
Problem List (1) Incisional hernia, without obstruction or gangrene Status: Acute Report of Operation Date of Procedure: 12/07/18 Pre-Operative Diagnosis: Incisional hernia without obstruction or gangrene Post-Operative Diagnosis: Same Surgery/Procedure Performed:: Incisional hernia repair with mesh Type of Anesthesia:: General Anesthesiologist: Jayro Blanca Description of Procedure: Patient was brought into the operating room. Placed in the supine position. Under excellent general anesthetic upper abdomen was sterilely prepped and d raped in the usual fashion. Local was injected previous incision was opened dissected down incisional hernia was in the epigastric area I dissected the hernia free and place it back into its preperitoneal space. I then created a preperitoneal window using electrocautery and Ray-Melissa dissection once I had this placed circumferentially cleaned off I fashioned a medium ventral X hernia patch into the wound it laid completely flat. I sutured it to the surrounding fascia with #1 Nurolon's. I injected Exparel. I had good hemostasis. Subcu was brought together with 2-0 Vicryl deep dermals with 3-0 Vicryls in a running 4-0 Monocryl on the skin. Steri-Strips were applied and the patient tolerated the procedure well. - Admit VTE Documentation VTE Present on Admission: No VTE Mechan Device Prophylaxis: SCD's VTE Pharm Prophylaxis ordered?: No Reason prophylaxis not ordered:: Treatment Not Indicated
--- NOTE | 2018-12-07 10:58 | DCINST_ITS ---
Discharge Diet: Light diet - advance as tolerated Discharge Activity: Return to Normal Activity, May Drive - when you are no longer taking narcotic pain medications., May Shower - with the bandage in place 1-2 days after surgery. Lifting Restrictions: 20 pounds for 8 weeks. Additional Activity Instructions:: Climbing stairs is fine, walking is encouraged. Sitting in bed may be uncomfortable. Sitting up using your lateral muscles (sitting up sideways) is usually more comfortable. Do not drive, work heavy equipment of sign legal documents for 24 hours. If your hernia repair was an ingunial repair, you may have scrotal swelling, an ice pack and/or athletic support can provide more comfort. Pain medications may cause nausea, you should typically eat light foods as you take your pain medications. Pain medications may also cause constipation. If you have difficulty with this, discuss with your doctor. Call your doctor if your incision/area has: Continuous Slow Oozing, Sudden Increased Bleeding, Increased Pain/ Swelling, Increased Redness, Foul Smelling Discharge Call your doctor if you observe: Fever of 101 or Higher Suture Line Care: Avoid Pulling/Pushing, Avoid Pinching/Bending Additional Dressing/Incision Instructions:: Leave the operative bandage on for 2-3 days. When you remove the bandage, leave the steri-strips on place until your follow up appointment or they fall off. Allergies/Adverse Reactions: Allergies No Known Allergies Allergy (Verified 12/03/18 09:38) Medications to take at Discharge Aspirin E.C. [Ecotrin] 81 mg PO QHS 04/18/14 Citalopram Hydrobromide [Celexa] 40 mg PO DAILY 04/18/14 Levothyroxine [Synthroid] 125 mcg PO DAILY 04/18/14 Venlafaxine XR [Effexor Xr] 37.5 mg PO DAILY 04/18/14 antiarthritic combination no.2 900 mg tablet 1 tab PO BID tab 11/16/17 carvedilol 6.25 mg tablet 6.25 mg PO BID #180 tab 07/29/18 simvastatin 20 mg tablet 20 mg PO QHS #90 tab 07/29/18 lisinopril 10 mg tablet 5 mg PO DAILY tab 11/25/18 Valacyclovir HCl [Valacyclovir] 1,000 mg PO TID PRN 12/03/18 Oxycodone HCl/Acetaminophen [Percocet 5/325] 1 - 2 tab PO Q4H PRN PRN 6 Days #30 tab 12/07/18 The following prescriptions were given: Oxycodone HCl/Acetaminophen [Percocet 5/325] 1 - 2 tab PO Q4H PRN PRN 6 Days #30 tab PRN Reason: Pain Orders to be completed after discharge: Hemoglobin A1c Time Frame: 12/03/18, Location: Laboratory Basic Metabolic Profile (BMP) Time Frame: 12/03/18, Location: Laboratory CBC-Complete Blood Cnt No Diff Time Frame: 12/03/18, Location: Laboratory Thyroid Stim Hormone (TSH) Time Frame: 12/03/18, Location: Laboratory Primary Care Physician: Gary Grider DO [Primary Care Provider] - Test Results: Test results from this visit will be discussed in further detail at your follow- up appointment, if applicable. Please Follow Up With: J Carlos Candelario MD - [phone] When: Plan to have a follow up appointment in 7 days. Call to schedule.
[2018-12-07] MEDS: Cefazolin 2 GM in 0.9% Normal Saline 100 ML IV (11:03)
[2018-12-07] MEDS: BUPIVACAINE LIPOSOME/PF 20 ML VIAL OPERA.SITE (11:26)
[2018-12-07 11:50] VITALS: BP 128/61; BP 156/71; PULSE 64; RESP 16; TEMP 36.8; O2SAT 96
[2018-12-07 12:00] VITALS: BP 146/66; BP 156/71; PULSE 87; RESP 16; O2SAT 93
[2018-12-07 12:01] LABS: Bedside Glucose 106 mg/dL (70-110)
[2018-12-07 12:16] VITALS: BP 124/58; BP 156/71; PULSE 67; RESP 16; TEMP 37.1; O2SAT 97
[2018-12-07 13:52] VITALS: BP 134/64; BP 156/71; PULSE 52; RESP 16; TEMP 36.4; O2SAT 95
== END 2018-12-07 14:01 | disposition home or self-care (01) ==
LOC: SDC 08:50 → AC 08:52
PROVIDERS: Family Provider Family Medicine; PCP Family Medicine; Referring Provider Surgery; Visit Provider Surgery
PROC: (CPT 49560; principal; 2018-12-07 10:45)
DX: K43.2 Incisional hernia without obstruction or gangrene (principal); E03.9 Hypothyroidism, unspecified; E78.5 Hyperlipidemia, unspecified; I10 Essential (primary) hypertension; G47.33 Obstructive sleep apnea (adult) (pediatric); R73.03 Prediabetes; Z79.899 Other long term (current) drug therapy; Z79.82 Long term (current) use of aspirin
CPT/HCPCS: 00752; 49560; 49568; 82962; 93005; C1781; J7120; J2405

== ENCOUNTER → 2019-02-15 | Outpatient (CLI) | payer OTHER, SELFPAY ==
[2019-02-08 06:01] VITALS: BMI 32.4
== END | disposition home or self-care (01) ==
LOC: SL 13:16
PROVIDERS: Family Provider Family Medicine; PCP Family Medicine; Referring Provider Internal Medicine Critical Care Medicine; Visit Provider Internal Medicine Critical Care Medicine
DX: G47.33 Obstructive sleep apnea (adult) (pediatric) (principal)
CPT/HCPCS: 98960; G0463

== ENCOUNTER → 2019-02-16 | Outpatient (CLI) | payer OTHER, SELFPAY ==
[2019-01-20 13:41] VITALS: BMI 32.4
[2019-02-08 06:01] VITALS: BMI 32.4
--- NOTE | 2019-02-16 08:34 | ECHOD_ITS ---
Reason For Study: PHTN, HTN Procedure This was a 2D Doppler, Color Flow transthoracic echocardiogram. Exam performed in department. Left Ventricle Normal size and thickness. The estimated ejection fraction is 65 %. Normal diastology for age. No regional wall motion abnormalities noted. Right Ventricle Normal size and thickness. Normal systolic function. Atria The left atrium is mildly enlarged. Normal right atrium. Normal atrial septum. Mitral Valve The mitral valve is structurally normal. No prolapse or stenosis seen. Trivial mitral valve insufficiency. Tricuspid Valve Normal tricuspid valve. Trivial tricuspid valve insufficiency. Right ventricular systolic pressure estimated to be 35 mmHg. Aortic Valve Trisinus/trileaflet aortic valve. Normal aortic valve. Pulmonic Valve Normal pulmonic valve. Great Vessels Normal aortic root. Normal arch. Normal inferior vena cava. Inferior vena cava collapse with sniff. Pericardium/Pleural No pericardial effusion. MMode/2D Measurements & Calculations LVIDd: 5.0 cm IVSd: 1.0 cm Ao root diam: 2.8 cm LVIDs: 3.2 cm LVPWd: 0.99 cm RVDd: 3.0 cm FS: 35.7 % LAV(MOD-bp): 71.7 ml LA A4 area: 21.7 cm2 LA dimension(2D): 3.8 cm LAV(MOD-bp) Indexed: 38.5 ml/m2 LAV(MOD-sp2): 55.9 ml LAV(MOD-sp4): 74.0 ml RA A4 area: 14.0 cm2 Time Measurements MV dec time: 0.12 sec Doppler Measurements & Calculations MV E max dung: 103.8 cm/sec Lat Peak E' Dung: 9.4 cm/sec Med Peak E' Dung: 8.3 cm/sec MV A max dung: 88.8 cm/sec E/E' lat: 11.1 E/E' med: 12.5 MV E/A: 1.2 Ao V2 max: 129.5 cm/sec LV V1 max: 114.1 cm/sec PA V2 max: 111.6 cm/sec Ao max P.7 mmHg LV V1 max P.2 mmHg TR max dung: 260.7 cm/sec TR max P.2 mmHg Interpretation Summary The estimated ejection fraction is 65 %. Normal diastology for age. The left atrium is mildly enlarged. Trivial mitral valve insufficiency. Trivial tricuspid valve insufficiency. Right ventricular systolic pressure estimated to be 35 mmHg. There is no comparison study available. Ordering Physician: J Carlos Barfield Referring Physician: Gary Grider Performed By: Meeta Cook RDCS, RVT
[2019-02-16 09:40] LABS: AST(SGOT) 13 U/L (15-37); Alanine Aminotransfer ALT/SGPT 21 U/L (13-56); Albumin, Serum 3.6 g/dL (3.2-5.0); Alkaline Phosphatase 66 U/L (45-117); Cholesterol 146 mg/dL (200); Globulin 3.3 g/dL (2.2-4.2); High Density Lipoprotein 55 mg/dL; Protein, Total 6.9 g/dL (6.4-8.2); Triglycerides 75 mg/dL; Very Low Density Lipoprotein 15 mg/dL (5-40)
== END | disposition home or self-care (01) ==
LOC: CVS 08:33
PROVIDERS: Family Provider Family Medicine; PCP Family Medicine; Referring Provider Internal Medicine Cardiovascular Disease; Visit Provider Internal Medicine Cardiovascular Disease
DX: I10 Essential (primary) hypertension (principal); E78.5 Hyperlipidemia, unspecified; G47.33 Obstructive sleep apnea (adult) (pediatric)
CPT/HCPCS: 36415; 80061; 80076; 93306

== ENCOUNTER → 2020-03-27 14:56 | Outpatient (CLI) | payer OTHER, SELFPAY ==
[2020-02-06 09:32] VITALS: BMI 38.9
--- NOTE | 2020-03-27 14:58 | ECHOD_ITS ---
Reason For Study: PHTN Procedure This was a 2D Doppler, Color Flow transthoracic echocardiogram. The exam was of adequate technical quality. Exam performed in department. Left Ventricle Normal LV size. Left ventricular systolic function is normal. The estimated ejection fraction is 60 %. No evidence for diastolic dysfunction. No regional wall motion abnormalities noted. Right Ventricle Normal RV size. Normal systolic function. Atria Borderline enlarged left atrium. Normal right atrium. No doppler evidence for ASD. Mitral Valve There is no mitral annular calcification. Normal mitral valve. Trivial mitral valve insufficiency. Tricuspid Valve Normal tricuspid valve. Trivial tricuspid valve insufficiency. Right ventricular systolic pressure estimated to be 27 mmHg. Aortic Valve Trisinus/trileaflet aortic valve. Normal aortic valve. Pulmonic Valve The pulmonic valve is not well visualized. Great Vessels Normal sized aortic root. Pericardium/Pleural No pericardial effusion. MMode/2D Measurements & Calculations LVIDd: 4.2 cm IVSd: 0.97 cm Ao root diam: 3.3 cm LVIDs: 2.9 cm LVPWd: 0.91 cm RVDd: 2.7 cm FS: 31.2 % LAV(MOD-bp): 60.8 ml LA A4 area: 20.1 cm2 LA dimension(2D): 3.6 cm LAV(MOD-bp) Indexed: 30.8 ml/m2 LAV(MOD-sp2): 60.6 ml LAV(MOD-sp4): 58.9 ml RA A4 area: 12.7 cm2 Time Measurements MV dec time: 0.17 sec Doppler Measurements & Calculations MV E max dung: 104.6 cm/sec Lat Peak E' Dung: 12.2 cm/sec Med Peak E' Dung: 7.0 cm/sec MV A max dung: 69.6 cm/sec E/E' lat: 8.6 E/E' med: 14.9 MV E/A: 1.5 Ao V2 max: 127.4 cm/sec LV V1 max: 117.1 cm/sec PA V2 max: 128.9 cm/sec Ao max P.5 mmHg LV V1 max P.5 mmHg TR max dung: 242.5 cm/sec TR max P.5 mmHg Interpretation Summary Left ventricular systolic function is normal. The estimated ejection fraction is 60 %. Borderline enlarged left atrium. Trivial mitral valve insufficiency. Trivial tricuspid valve insufficiency. Right ventricular systolic pressure estimated to be 27 mmHg. No evidence for diastolic dysfunction. Ordering Physician: J Carlos Barfield Referring Physician: BESS OSEGUERA Performed By: Vanessa Adams RDCS, RVT
== END ==
PROVIDERS: PCP Family Medicine; Referring Provider Internal Medicine Cardiovascular Disease; Visit Provider Internal Medicine Cardiovascular Disease
DX: I10 Essential (primary) hypertension (principal); E78.5 Hyperlipidemia, unspecified; G47.33 Obstructive sleep apnea (adult) (pediatric)
CPT/HCPCS: 93306

== ENCOUNTER → 2020-04-04 09:13 | Outpatient (CLI) | payer OTHER, SELFPAY ==
[2020-02-06 09:32] VITALS: BMI 38.9
--- NOTE | 2020-04-04 09:15 | STEWCON_ITS ---
Reason For Study: Dyspnea Stress Results Protocol: Rommel Protocol WITH DEFINITY Maximum Predicted HR: 158 bpm Target HR: 134 bpm % Maximum Predicted HR: 101 % DurationHeart Rate Stage (mm:ss) (bpm) BP Comment Baseline 71 160/82No Chest Pain; 3 ML Diluted Definity Rommel Protocol Stage I 3:00 139 178/70No Chest Pain; Mild Dyspnea Rommel Protocol Stage II 3:00 157 190/72No Chest Pain; Moderate Dyspnea Rommel Protocol Stage III 0:59 160 / No Chest Pain; Moderate Dyspnea Recovery 93 138/76No Chest Pain; No Dyspnea Stress Duration: 6:59 mm:ss Maximum Stress HR: 160 bpm METS: 10 Baseline Echocardiogram Findings Stress Echo Wall motion Data Resting WM Intermediate WM Stress WM Resting Wall Motion Wall Motion Stress All segments Normal. All segments Hyperkinetic. Ejection Fraction 60 %. Ejection Fraction 70 %. Stress Results Heart rate response: Appropriate Blood pressure response: Resting hypertension-appropriate response Arrhythmias: None Functional capacity: Average Stopped secondary to: Dyspnea. EKG Data The baseline ECG displays normal sinus rhythm. Peak exercise ECG: Somatic/motion artifact with [id number] nonspecific ST segment variability. Symptoms with Stress No report of chest discomfort during exercise or recovery. Interpretation Summary 1. Contrast injection performed 2. Negative (adequate) stress echocardiogram Ordering Physician: J Carlos Barfield Referring Physician: Niraj Rocha Performed By: Mateus Jacobo RCS
== END ==
PROVIDERS: PCP Family Medicine; Referring Provider Internal Medicine Cardiovascular Disease; Visit Provider Internal Medicine Cardiovascular Disease
DX: R06.00 Dyspnea, unspecified (principal); I10 Essential (primary) hypertension; E66.9 Obesity, unspecified; G47.33 Obstructive sleep apnea (adult) (pediatric); E78.5 Hyperlipidemia, unspecified; R06.02 Shortness of breath; R73.03 Prediabetes
CPT/HCPCS: 93017; 93350; Q9957; A4216; C8928

== ENCOUNTER → 2021-02-21 10:53 | Outpatient (CLI) | payer OTHER, SELFPAY ==
[2021-02-21 09:25] VITALS: BMI 38.4
[2021-02-21 11:54] LABS: AST(SGOT) 22 U/L (15-37); Alanine Aminotransfer ALT/SGPT 25 U/L (13-56); Albumin, Serum 4.1 g/dL (3.2-5.0); Alkaline Phosphatase 85 U/L (45-117); Bilirubin, Direct 0.15 mg/dL (0.00-0.30); Cholesterol 236 mg/dL (200); Globulin 3.7 g/dL (2.2-4.2); High Density Lipoprotein 58 mg/dL; Protein, Total 7.8 g/dL (6.4-8.2); Triglycerides 205 mg/dL; Very Low Density Lipoprotein 41 mg/dL (5-40)
== END ==
PROVIDERS: PCP Family Medicine; Referring Provider Physician Assistant Medical; Visit Provider Physician Assistant Medical
DX: E78.5 Hyperlipidemia, unspecified (principal)
CPT/HCPCS: 36415; 80061; 80076

== ENCOUNTER → 2024-08-03 | Outpatient (CLI) | payer MEDICARE, OTHER, SELFPAY ==
[2024-08-08 13:06] LABS: HPV APTIMA, High Risk Negative (Negative)
== END | disposition home or self-care (01) ==
LOC: LABSPEC 10:28
PROVIDERS: PCP Family Medicine; Referring Provider Nurse Practitioner Family; Visit Provider Nurse Practitioner Family
DX: Z12.4 Encounter for screening for malignant neoplasm of cervix (principal)
CPT/HCPCS: 87624; 88175; G0145

== ENCOUNTER → 2024-08-10 | Outpatient (CLI) | payer MEDICARE, OTHER, SELFPAY ==
--- NOTE | 2024-08-10 08:10 | BI_ITS ---
PROCEDURE: SCRN MAMM (CAD)W/CARMITA BILAT REASON FOR EXAM: F, Age 69 y/o, routine mammogram. TECHNIQUE: Bilateral screening digital breast tomosynthesis with 2D and 3D images. Computer aided detection. COMPARISON: Prior exam(s) dating back to comparison is made with prior outside examination dated July 08, 2016.. FINDINGS: The breasts are heterogeneously dense which may obscure small masses. Stable asymmetry of breast tissue were more breast tissue is seen in the upper-outer quadrant of the left breast as compared to the right side. No suspicious masses, areas of developing architectural distortion, or suspicious calcifications. BI/SCRN MAMM (CAD)W/CARMITA BILAT IMPRESSION: BI-RADS 2: BENIGN. RECOMMEND ANNUAL MAMMOGRAPHIC SCREENING. Follow-up code: Routine Follow-up The patient will be notified of the results by letter. Reading Location: [place] [id number]
== END | disposition home or self-care (01) ==
PROVIDERS: PCP Family Medicine; Referring Provider Nurse Practitioner Family; Visit Provider Nurse Practitioner Family
DX: Z12.31 Encounter for screening mammogram for malignant neoplasm of breast (principal)
CPT/HCPCS: 77063; 77067